=== PATIENT | male | born 1965 | race African-American/Black ===

== ENCOUNTER 2019-08-01 07:10 | Outpatient (CLI) | payer OTHER ==
[2019-08-01 10:31] LABS: #Basophils 0.1 thou/uL (0.0-0.2); #Eosinphils 0.3 thou/uL (0.0-0.7); #Monocytes 0.6 thou/uL (0.11-0.59); #Neutrophils 3.4 thou/uL (1.40-6.50); %Basophils 1.1 % (0.0-1.0); %Eosinophils 4.4 % (0.0-10.0); %Lymphocytes 31.5 % (21.0-51.0); %Monocytes 8.7 % (0.0-10.0); %Neutrophils 54.4 % (42.0-75.0); Hemoglobin 15.3 g/dL (14.0-18.0); Mean Corpuscular HGB CONC 32.8 g/dL (32.0-36.0); Mean Corpuscular Hemoglobin 28.7 pg (27.0-31.0); Mean Corpuscular Volume 87.3 fL (78.0-98.0); Mean Platelet Volume 7.8 fL (7.4-10.4); Platelet Count 259 thou/uL (130-400); RBC Distribution Width 11.9 % (11.5-14.5); Red Blood Cell (RBC) Count 5.34 mill/uL (4.70-6.10); White Blood Cell (WBC) Count 6.3 thou/uL (4.8-10.8)
[2019-08-01 10:50] LABS: Bacteria/HPF None Seen HPF (None Seen); Bilirubin Negative (Negative); Blood, Urine Negative (Negative); Clarity Clear (Clear); Glucose, Urine (Dipstick) Normal (Negative); Leukocyte Negative Leu/uL (Negative); Nitrite Negative (Negative); Protein, Urine (Dipstick) Negative (Neg-Trace); RBC/HPF 0-3 HPF (0-3); Squamous Epithelial None Seen HPF (0-3); Urobilinogen Normal mg/dL (Less than 2); WBC/HPF 0-3 HPF (0-3)
[2019-08-01 10:56] LABS: Anion Gap 16 mmol/L (10-20); BUN (Urea Nitrogen) 11 mg/dL (8.4-25.7); Calc. Creatinine Clearance 0 mL/min (70-130); Carbon Dioxide 25 mmol/L (22-29); Chloride 103 mmol/L (98-107); Estimated GFR-MDRD 71; Glucose 103 mg/dL (70-105); Potassium 4.8 mmol/L (3.5-5.1); Sodium 139 mmol/L (136-145)
[2019-08-01 10:57] LABS: INR-International Normal Ratio 1.1; Prothrombin Time 13.8 SEC (12.0-14.7)
== END 2019-08-01 07:11 | disposition home or self-care (01) ==
LOC: LABBT 07:10
PROVIDERS: ATTEND Orthopaedic Surgery
DX: Z01.818 Encounter for other preprocedural examination (principal); M16.12 Unilateral primary osteoarthritis, left hip
CPT/HCPCS: 80048; 81001; 85025; 85610; 87081; 93005; 93010

== ENCOUNTER 2019-08-01 08:00 | Inpatient (IN) | payer OTHER ==
[2019-08-01 09:03] VITALS: BMI 31.4
--- NOTE | 2019-08-14 17:42 | HP ---
HISTORY OF PRESENT ILLNESS: The patient is a 53-year-old white male with a several month history of progressive bilateral hip pain, left greater than right. There has been no injury. He has pain with ambulation and weightbearing. It has persisted despite rest, restriction of activities, use of steroids and anti-inflammatory medications including naproxen and meloxicam. The pain is interfering with day-to-day activities including walking, getting dressed, working, and sleeping. He currently works driving a forklift. PAST HISTORY: The patient is otherwise in good health. He has no major medical problems. He has also been taking hydrocodone for pain. His older sister has had bilateral hip replacements. ALLERGIES: HE IS ALLERGIC TO CONTRAST DYE. FAMILY HISTORY: Otherwise, unremarkable. SOCIAL HISTORY: Otherwise, unremarkable. REVIEW OF SYSTEMS: Otherwise, unremarkable. PHYSICAL EXAMINATION: GENERAL: Reveals a healthy heavyset male. HEENT: Unremarkable. NECK: Supple. CHEST: Clear. HEART: Regular rate and rhythm. ABDOMEN: Soft and nontender. RECTAL AND GENITAL: Deferred. EXTREMITIES: Pertinent findings are related to his hips. Leg lengths are equal. There is tenderness of the anterior hip bilaterally, left slightly greater than right. There is decreased range of motion of both hips, left greater than right, and groin pain with internal rotation of both hips, left greater than right. There is a slight left antalgic gait. Neurovascular exam is intact. DIAGNOSTIC STUDIES: Weightbearing x-rays of both hips reveal narrowing of both hip joints with minimal joint space remaining left greater than right. IMPRESSION: Degenerative arthritis of both hips, left greater than right. PLAN: Left total hip replacement. The nature of the surgery, length of recovery, and potential complications such as infection, loss of motion, incomplete relief, neurovascular injury, thromboembolic phenomena, leg-length discrepancy, possible transfusion, and need for revision have been discussed in detail. Job ID: [id number]
[2019-08-19] MEDS ORDERED: Tranexamic Acid 1,000 MG/10 ML VIAL ONE ×2 (06:37→12:03)
[2019-08-19] MEDS ORDERED: Sodium Chloride 0.9% 100 ML ONE (06:37)
[2019-08-19] MEDS ORDERED: Vancomycin HCl 1.5 GM in Sodium Chloride 0.9% 250 ML 300 ML IVPB SCH ×2 (06:45→21:00)
[2019-08-19] MEDS ORDERED: Ondansetron PF 4 MG/2 ML Vial IVP PRN ×2 (09:15→15:13)
[2019-08-19] MEDS ORDERED: Bupivacaine 0.25% 10 ML VIAL EPIDURAL PRN (09:15)
[2019-08-19] MEDS ORDERED: Promethazine HCl 25 MG SUPP PR PRN (09:15)
[2019-08-19] MEDS ORDERED: Naloxone HCl 0.4 mg/ml Vial IVP PRN (09:15)
[2019-08-19] MEDS ORDERED: diphenhydrAMINE 25 MG CAP PO PRN ×2 (09:15→15:13)
[2019-08-19] MEDS ORDERED: traMADol HCl 50 MG TAB PO PRN ×3 (09:15→15:13)
[2019-08-19] MEDS ORDERED: diphenhydrAMINE 50 MG/ML VIAL IM PRN (09:15)
[2019-08-19] MEDS ORDERED: Promethazine HCl 25 MG/ML VIAL IM PRN (09:15)
[2019-08-19] MEDS ORDERED: HYDROcodone/Acetaminophen 5/325 mg Tablet PO PRN (09:15)
[2019-08-19] MEDS ORDERED: Naloxone HCl 0.4 mg/ml Vial IV PRN (09:15)
[2019-08-19] MEDS ORDERED: Zolpidem Tartrate 5 MG TAB PO PRN ×2 (09:15→15:13)
[2019-08-19] MEDS ORDERED: diphenhydrAMINE 50 MG/ML VIAL IVP PRN (09:15)
[2019-08-19] MEDS ORDERED: Hydrocerin (Eucerin) Cream 120 gm Jar TOP PRN (09:15)
[2019-08-19] MEDS ORDERED: Acetaminophen 325 MG TAB PO PRN ×2 (09:20→15:13)
[2019-08-19] MEDS ORDERED: Fentanyl 100 MCG/2 ML VIAL ONE ×2 (09:40→10:52)
[2019-08-19] MEDS ORDERED: Bupivacaine/Epinephrine 0.25% 30 ML VIAL ONE (09:47)
[2019-08-19] MEDS ORDERED: Tranexamic Acid 1,000 MG in Sodium Chloride 0.9% 100 ML IVPB SCH ×2 (12:15→15:13)
[2019-08-19] MEDS ORDERED: Meperidine HCl/PF 25 MG/ML VIAL ONE (12:23)
[2019-08-19] MEDS ORDERED: Labetalol HCl 100 MG/20 ML VIAL ONE ×2 (12:40→13:11)
[2019-08-19] MEDS ORDERED: Rocuronium Bromide 10 MG/ML (10ML VIAL) ONE (13:11)
[2019-08-19] MEDS ORDERED: Glycopyrrolate 0.2 MG/ML 5 ML SYRINGE ONE (13:11)
[2019-08-19] MEDS ORDERED: Lidocaine 1% PF 5 ML VIAL ONE (13:11)
[2019-08-19] MEDS ORDERED: Ketorolac Tromethamine 30 MG/ML VIAL ONE (13:11)
[2019-08-19] MEDS ORDERED: PROPOFOL 200 MG/20 ML VIAL ONE (13:11)
[2019-08-19] MEDS ORDERED: Ondansetron PF 4 MG/2 ML Vial ONE (13:11)
[2019-08-19] MEDS ORDERED: Dexamethasone 20 MG/5 ML VIAL ONE (13:11)
--- NOTE | 2019-08-19 13:23 | OP ---
DATE OF PROCEDURE: 08/19/2019 MOTORIZED SQUAD CAPTAIN: Lopez Painter PA-C ANESTHESIA: General plus epidural. PREOPERATIVE DIAGNOSIS: Degenerative arthritis, left hip. POSTOPERATIVE DIAGNOSIS: Degenerative arthritis, left hip. PROCEDURE PERFORMED: Left total hip replacement with uncemented [place] Trident PSL acetabular component, 56 mm with X3 polyethylene insert, and uncemented [place] Accolade II femoral stem size #6 with 132-degree neck angle trunnion and standard neck length 36 mm delta ceramic femoral head. DESCRIPTION OF PROCEDURE: After satisfactory anesthesia was induced in supine position, sequential compression device was placed on the nonoperative leg throughout the procedure. The patient was placed in lateral decubitus position, and this position was held with a hip positioning device. The patient was then prepped and draped in routine sterile fashion. The hip was approached through a lateral curvilinear incision, centered over the greater trochanter, carried down through subcutaneous tissues, and bleeding points controlled with Bovie cautery. IT band and gluteal fascia were split in line with skin incision. A direct lateral approach to the hip joint was accomplished by dividing the anterior third of the gluteus minimus tendons with the Bovie cautery and reflecting this as a single flap anteriorly and medially along with the vastus lateralis. Anterior capsulectomy was performed and the hip was dislocated anteriorly. There was marked degenerative arthritis of the hip with large areas of exposed bone. Femoral neck was osteotomized with an oscillating saw using a trial prosthesis for a guide. Acetabulum was exposed and cleaned of all soft tissue debris and rim osteophytes. The acetabulum was then reamed down to bleeding subchondral bone to a total of 56 mm with prior reamers. It was felt that a 56 mm Trident PSL outer shell could be placed in a press-fit fashion. The permanent component was then hammered in position. There was good fit stability via the rim and the permanent X3 polyethylene insert was then snapped in position. The proximal femur was then exposed and opened with a box osteotome and rasped in sequence to accept a #6 Accolade II femoral rasp. A 132-degree neck angle trunnion was then placed on the rasp and trial reduction with a 36 mm standard neck length head was performed and gave appropriate size, fit, and stability. Hip was again dislocated anteriorly. The trial components were removed. The permanent #6 Accolade 2 femoral stem was then hammered in position. There was again good fit and stability of the component. The permanent standard neck length 36 mm delta ceramic head was then placed on the trunnion and the hip again reduced. It was again found to be stable. The hip was copiously irrigated with pulsatile lavage. The abductors were repaired with interrupted #2 Vicryl. IT band and gluteal fascia were closed with interrupted #2 Vicryl and a running #2 Quill. Subcutaneous tissues were closed with running 0 Quill suture, and then, skin closed with running subcuticular 3-0 Monoderm and SurgiSeal skin adhesive. Sterile dressing was applied. The patient turned to the supine position and a pillow placed between his legs. Sequential compression devices were placed on his operated leg, and he was awakened, taken to recovery room in stable condition. There were no apparent intraoperative complications. ESTIMATED BLOOD LOSS: 500 mL. Job ID: [id number]
--- NOTE | 2019-08-19 14:52 | RAD ---
LEFT HIP 2 VIEWS: HISTORY: Postop total hip replacement. FINDINGS/IMPRESSION: Interval postop changes of left total hip arthroplasty are seen in good position and alignment since comparison exam of 03/28/2019. POS: OFF
[2019-08-19] MEDS ORDERED: HYDROcodone/Acetaminophen 10/325 mg Tablet PO PRN ×2 (15:13)
[2019-08-19] MEDS ORDERED: Promethazine HCl 25 MG/ML VIAL SLOW IVP PRN (15:13)
[2019-08-19] MEDS ORDERED: Cyclobenzaprine 10 MG TAB PO PRN (15:13)
[2019-08-19] MEDS ORDERED: Fentanyl 100 MCG/2 ML VIAL SLOW IVP PRN ×2 (15:13)
[2019-08-19] MEDS: Ketorolac Tromethamine 30 MG/ML VIAL IVP SCH ×5 (17:25→23:56)
[2019-08-19] MEDS: Sodium Chloride 0.9% 1,000 ML IV SCH (17:26)
[2019-08-19] MEDS: Aspirin 81 mg Enteric Coated Tablet PO SCH (21:10)
[2019-08-19] MEDS: Senokot S 8.6-50 MG TAB PO SCH (21:18)
[2019-08-19] MEDS: Ferrous Gluconate 324 MG TAB PO SCH (21:18)
[2019-08-19] MEDS: CEFAZOLIN 2 GM in Premix Bag 1 BAG IVPB SCH (22:34)
[2019-08-20] MEDS: Sodium Chloride 0.9% 1,000 ML IV SCH ×3 (01:03→20:45)
[2019-08-20] MEDS: Ketorolac Tromethamine 30 MG/ML VIAL IVP SCH ×6 (05:35→18:27)
[2019-08-20] MEDS: CEFAZOLIN 2 GM in Premix Bag 1 BAG IVPB SCH (05:39)
[2019-08-20] MEDS: fentaNYL Citrate/PF 500 MCG, Bupivacaine 10 ML in Sodium Chloride 0.9% 80 ML EPIDURAL SCH ×2 (05:42→22:22)
[2019-08-20] MEDS: HYDROcodone/Acetaminophen 5/325 mg Tablet PO PRN ×2 (05:59→10:33)
[2019-08-20 06:15] LABS: Mean Corpuscular Hemoglobin 29.2 pg (27.0-31.0); Mean Corpuscular Volume 88.5 fL (78.0-98.0); Mean Platelet Volume 7.7 fL (7.4-10.4); Platelet Count 276 thou/uL (130-400); RBC Distribution Width 11.5 % (11.5-14.5); Red Blood Cell (RBC) Count 4.11 mill/uL (4.70-6.10); White Blood Cell (WBC) Count 11.2 thou/uL (4.8-10.8)
[2019-08-20] MEDS: Ferrous Gluconate 324 MG TAB PO SCH ×2 (09:07→20:19)
[2019-08-20] MEDS: Senokot S 8.6-50 MG TAB PO SCH ×2 (09:07→20:18)
[2019-08-20] MEDS: Multivitamin W/ Minerals 1 TAB PO SCH (09:07)
[2019-08-20] MEDS: Aspirin 81 mg Enteric Coated Tablet PO SCH ×2 (09:07→20:19)
[2019-08-21] MEDS: Ketorolac Tromethamine 30 MG/ML VIAL IVP SCH ×6 (00:07→17:50)
[2019-08-21] MEDS: Sodium Chloride 0.9% 1,000 ML IV SCH ×2 (06:12→18:00)
[2019-08-21] MEDS: Aspirin 81 mg Enteric Coated Tablet PO SCH (09:57)
[2019-08-21] MEDS: Multivitamin W/ Minerals 1 TAB PO SCH (09:57)
[2019-08-21] MEDS: Ferrous Gluconate 324 MG TAB PO SCH (09:57)
[2019-08-21] MEDS: Senokot S 8.6-50 MG TAB PO SCH (09:58)
[2019-08-21] MEDS ORDERED: HYDROcodone/Acetaminophen 10/325 mg Tablet PO PRN (10:19)
[2019-08-21] MEDS: HYDROcodone/Acetaminophen 10/325 mg Tablet PO PRN ×2 (10:43→17:53)
[2019-08-21 16:23] VITALS: BP 130/83; TEMP 98
== END 2019-08-21 19:00 | disposition home or self-care (01) | DRG 470 ==
LOC: SJJU 08-19 05:44
PROVIDERS: ADMIT Orthopaedic Surgery; ATTEND Orthopaedic Surgery
PROC: 0SRB04A Replacement of Left Hip Joint with Ceramic on Polyethylene Synthetic Substitute, Uncemented, Open Approach (ICD-10-PCS; principal; 2019-08-19)
DX: M16.0 Bilateral primary osteoarthritis of hip (principal); Z91.041 Radiographic dye allergy status
CPT/HCPCS: 36415; 85027; 86850; 86900; 86901; J0690; J1100; J1885; J2001; J2175; J2405; J2704; J3010; J3370; J3490; J7050